=== PATIENT | male | born 1950 | race Caucasian/White ===

== ENCOUNTER → 2023-03-20 | Outpatient (CLI) | payer MEDICARE ==
[~2023-03-20] MED LIST: ASPI-1238 PO; ATOR40TA PO; EMPA25TA PO; INSU100I14 SQ; INSU100I43 SC; INSU100I43 SQ; INSU100I88 SQ; IOHEXOL 350 MG/ML 100 ML (OMNIPAQUE 350) VIAL IV ONE; METF-399 PO; METO50TA15 PO; NS 100 ML (IVPB) BAG IV ONE; SACU1TAB2 PO; TICA90TA PO
--- NOTE | 2023-03-20 16:45 | Diagnostic Imaging Report ---
TECHNIQUE: CTA of the neck was performed with contrast bolus timing optimized for evaluation of the arterial structures of the neck. 3-D reformats were obtained and reviewed. Dose reduction techniques were utilized. REASON FOR EXAM: Stenosis of the bilateral carotid arteries. Further characterization. COMPARISON: None. FINDINGS: The lungs are clear. There is calcified aortic atherosclerotic plaque without aneurysm. The bilateral common carotid arteries have a normal course without focal stenosis or dissection. There is atherosclerotic plaque in the bilateral carotid bulbs and proximal internal carotid arteries. There is 50-69% stenosis in the proximal right internal carotid artery based on NASCET criteria. No focal stenosis is seen in the left internal carotid artery. No evidence of dissection. The external carotid arteries are visualized and are unremarkable. The right vertebral artery is dominant. No stenosis or dissection in the bilateral vertebral arteries. The cervical spine has a normal appearance of acute fracture or dislocation. The soft tissues of the neck are normal. A nodule is seen off the right lobe of the thyroid measuring 1.5 cm. IMPRESSION: 1. 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 No stenosis in the left carotid system. 2. No stenosis or dissection of vertebral arteries. 3. Nodule in the right lobe of the thyroid measuring 1.5 cm. Based on size criteria further evaluation with thyroid ultrasound is recommended. Dictated by: Dictated on workstation # [id number]
== END ==
LOC: RAD 15:10
PROVIDERS: ATTEND Internal Medicine Cardiovascular Disease
DX: I65.23 Occlusion and stenosis of bilateral carotid arteries (principal); E04.1 Nontoxic single thyroid nodule
CPT/HCPCS: 70498

== ENCOUNTER → 2023-06-06 | Outpatient (CLI) | payer MEDICARE ==
[~2023-06-06] MED LIST changes: -IOHEXOL 350 MG/ML 100 ML (OMNIPAQUE 350) VIAL IV ONE; -NS 100 ML (IVPB) BAG IV ONE
== END ==
LOC: CANPRECLI → CARD 09:58
PROVIDERS: ATTEND Internal Medicine Cardiovascular Disease
DX: I11.9 Hypertensive heart disease without heart failure (principal)
CPT/HCPCS: 93306

== ENCOUNTER → 2023-06-29 | Outpatient (CLI) | payer MEDICARE ==
--- NOTE | 2023-06-29 16:47 | Diagnostic Imaging Report ---
PROCEDURE: US Thyroid. TECHNIQUE: Multiple real-time grayscale images were obtained of the thyroid in various projections. INDICATION: Thyroid nodules seen on CT chest. COMPARISON: 03/20/2023. FINDINGS: Both thyroid lobes demonstrate smooth and homogenous background echotexture. Color flow Doppler demonstrates normal and symmetric vascularity bilaterally. The right lobe measures 5.6 cm in length, 1.7 cm AP, and 2.2 cm transverse. The left lobe measures 4.8 cm in length, 1.3 cm AP, and 1.8 cm transverse. The isthmus measures 0.4 cm. The dominant nodule in the inferior pole of the right lobe of the thyroid demonstrates solid internal components and measures 1.6 x 1.2 x 1.6 cm. This is ill defined and has associated calcifications. Smaller cystic nodules are seen in the right lobe of the thyroid, the largest measuring 1.3 x 0.9 x 0.9 cm. IMPRESSION: 1. Multinodular right lobe of the thyroid, with the largest nodule measuring 1.6 cm with solid internal components and associated calcifications. This would be classified as a TI-RADS 4 nodule. Based on size criteria, further evaluation with thyroid FNA/biopsy is recommended. However, this would be a very challenging biopsy given the proximity of the right common carotid artery directly lateral to this nodule. FNA/biopsy therefore could be deferred in favor of a short-interval follow-up with thyroid ultrasound in six months to evaluate for interval growth. Correlation with TSH levels is also recommended. Dictated by: Dictated on workstation # [id number]
== END ==
LOC: RAD 08:30
PROVIDERS: ATTEND Physician Assistant
DX: E04.2 Nontoxic multinodular goiter (principal)
CPT/HCPCS: 76536